=== PATIENT | male | born 1985 | race Caucasian/White ===

== ENCOUNTER 2016-09-12 09:54 | Day surgery (SDC) | payer OTHER ==
[~2016-09-12 09:54] MED LIST: FENTANYL 250 MCG/5 ML AMP IV PRN; IV START KIT ONE; LACTATED RINGERS 1,000 ML IV SCH; LACTATED RINGERS 1,000 ML ONE; LIDOCAINE Viscous 2% 15 ML UDCUP PO PRN; MIDAZOLAM HCL 5 MG/5 ML VIAL IV PRN
[2016-09-12] MEDS ORDERED: FENTANYL 250 MCG/5 ML AMP ONE (10:31)
[2016-09-12] MEDS ORDERED: LIDOCAINE Viscous 2% 15 ML UDCUP ONE (10:31)
[2016-09-12] MEDS ORDERED: MIDAZOLAM HCL 5 MG/5 ML VIAL ONE (10:31)
[2016-09-12] MEDS ORDERED: MIDAZOLAM HCL 1 MG/ML 2ML VIAL ONE (11:00)
[2016-09-12 15:29] LABS: HELICOBACTER PYLORII DETECTION NEGATIVE (NEGATIVE)
--- NOTE | 2016-09-14 13:50 | SURGPATH ---
[facility] [address] [place] [id number] Patient Name: BRISA LOVELL MR#: [id number] : 1985 Gender: M Specimen #: [id number] Collected: 09/12/2016 Received: 09/13/2016 Reported: 09/14/2016 Submitting Phys: RITU SANCHEZ Copy To Phys: [facility] Clinical History / Pre-Operative Diagnosis: DIARRHEA WITH NAUSEA; VOMITING; PERIUMBILICAL PAIN; WEIGHT LOSS; RECTAL BLEEDING; RULE OUT GIARDIA, CELIAC SPRUE, GASTRITIS, ILEITIS AND COLITIS Specimen Source / Surgical Procedure Performed: #1-DUODENAL BIOPSY; #2-ANTRAL BIOPSY; #3-TERMINAL ILEUM BIOPSIES; #4-CECAL BIOPSY; #5-SIGMOID BIOPSY AT 30 CM Interpretation: 1. DUODENUM, BIOPSY: - NO DIAGNOSTIC ABNORMALITIES 2. STOMACH, ANTRUM, BIOPSY: - NO DIAGNOSTIC ABNORMALITIES - NO HELICOBACTER ORGANISMS SEEN ON ROUTINE STAIN 3. TERMINAL ILEUM, BIOPSY: - NO DIAGNOSTIC ABNORMALITIES 4. CECUM, BIOPSY: - NO DIAGNOSTIC ABNORMALITIES 5. COLON, SIGMOID, 30 CM, BIOPSY: - NO DIAGNOSTIC ABNORMALITIES Electronically Signed Out Cande Cbob M.D. Gross Description: #1 The specimen is received in a formalin filled container labeled with the patient's name and "duodenal biopsy". Two schreiber biopsies are 0.3 and 0.4 cm. Totally embedded in cassette #1. #2 The specimen is received in a formalin filled container labeled with the patient's name and "antral biopsy". Three trujillo-schreiber biopsies are 0.2, 0.3 and 0.3 cm. Totally embedded in cassette #2. #3 The specimen is received in a formalin filled container labeled with the patient's name and "terminal ileum biopsy". Two schreiber biopsies are 0.4 and 0.5 cm. Totally embedded in cassette #3. #4 The specimen is received in a formalin filled container labeled with the patient's name and "cecal biopsy". Two schreiber biopsies are 0.3 and 0.6 cm. Totally embedded in cassette #4. #5 The specimen is received in a formalin filled container labeled with the patient's name and "sigmoid biopsy at 30 cm". Two grade biopsies are each 0.4 cm. Totally embedded in cassette #5. Bijan Garrido PDipika Microscopic Description: Part 1: Sections show duodenal mucosa with overall intact architecture with a villous to crypt ratio of three to one. No increased intraepithelial lymphocytes, gastric metaplasia, active duodenitis, or evidence of Giardia are seen on routine stain. No malignancy is seen. Part 2: Sections show gastric antral and oxyntic mucosa with overall intact architecture. No significant active or chronic inflammation is seen. No Helicobacter organisms are seen on routine stain. No dysplasia or malignancy is seen. Part 3: Sections show terminal ileum with overall intact architecture with a villous to crypt ratio of three-one. No increased intraepithelial lymphocytes, thickened subepithelial collagen band, or active ileitis is seen. Part 4: Sections show colonic mucosa with overall intact architecture with straight crypts extending to the muscularis mucosa. No increased intraepithelial lymphocytes, thickened subepithelial collagen band, or active colitis is seen. No granulomas, dysplasia, or carcinoma is seen. Part 5: Sections show colonic mucosa with overall intact architecture with straight crypts extending to the muscularis mucosa. No increased intraepithelial lymphocytes, thickened subepithelial collagen band, or active colitis is seen. No granulomas, dysplasia, or carcinoma is seen. 1: [id number] 2: 60421 3: 98892 4: 02972 5: 23530 R19.7 R11.2
== END 2016-09-12 12:15 | disposition home or self-care (01) ==
LOC: SDC 09:54
PROVIDERS: ATTEND Internal Medicine Gastroenterology
PROC: 0DB68ZX Excision of Stomach, Via Natural or Artificial Opening Endoscopic, Diagnostic (ICD-10-PCS; principal; 2016-09-12)
PROC: 0DB98ZX Excision of Duodenum, Via Natural or Artificial Opening Endoscopic, Diagnostic (ICD-10-PCS; 2016-09-12)
PROC: 0DBN8ZX Excision of Sigmoid Colon, Via Natural or Artificial Opening Endoscopic, Diagnostic (ICD-10-PCS; 2016-09-12)
PROC: 0DBB8ZX Excision of Ileum, Via Natural or Artificial Opening Endoscopic, Diagnostic (ICD-10-PCS; 2016-09-12)
PROC: 0DBH8ZX Excision of Cecum, Via Natural or Artificial Opening Endoscopic, Diagnostic (ICD-10-PCS; 2016-09-12)
DX: K29.70 Gastritis, unspecified, without bleeding (principal); K29.80 Duodenitis without bleeding; K21.0 Gastro-esophageal reflux disease with esophagitis; K59.8 Other specified functional intestinal disorders; Z88.0 Allergy status to penicillin
CPT/HCPCS: 87081; 43239; 45380; J3010; J2250 ×2; A9270; J7120